=== PATIENT | female | born 1935 | race Caucasian/White ===

== ENCOUNTER 2021-05-19 10:56 | Inpatient (IN) | payer MEDICARE, OTHER ==
[~2021-05-19] VITALS: Ht 154.9 cm; Wt 58.1 kg
[2021-05-19 11:45] LABS: HEMOGLOBIN 11.9 gm/dl (12.3-15.3); RED BLOOD COUNT 3.61 M/UL (4.00-5.10); WHITE BLOOD COUNT 15.4 K/UL (4.5-11.0)
[2021-05-19] MEDS ORDERED: TYLENOL EXTRA500 MG PO ×2 (15:47)
[2021-05-19] MEDS ORDERED: MAALOX PLUS 3030 ML PO (15:48)
[2021-05-19] MEDS ORDERED: ALBUTEROL2.5 MG/3 M NEB (15:48)
[2021-05-19] MEDS ORDERED: ZYLOPRIM 300 M300 MG PO (15:48)
[2021-05-19] MEDS ORDERED: ARICEPT10 MG PO (15:48)
[2021-05-19] MEDS ORDERED: ELIQUIS2.5 MG PO (15:48)
[2021-05-19] MEDS ORDERED: LASIX20 MG PO (15:49)
[2021-05-19] MEDS ORDERED: GUAIFENESIN200 MG PO (15:49)
[2021-05-19] MEDS ORDERED: CLARITIN10 MG PO (15:50)
[2021-05-19] MEDS ORDERED: NAMENDA 5 MG TAB5 MG PO (15:50)
[2021-05-19] MEDS ORDERED: LACTULOSE10 GM/15 M PO (15:50)
[2021-05-19] MEDS ORDERED: LOPRESSOR 25 MG25 MG PO (15:50)
[2021-05-19] MEDS ORDERED: K-TAB ER10 MEQ PO (15:51)
[2021-05-19] MEDS ORDERED: ZOLOFT50 MG PO (15:51)
[2021-05-19] MEDS ORDERED: OMEPRAZOLE40 MG PO (15:51)
[2021-05-19] MEDS ORDERED: ZINC OXIDE60 GM TOP (15:52)
[2021-05-19] MEDS ORDERED: SODIUM CHLORIDE4 M1 NEB (15:52)
[2021-05-20 02:05] LABS: HEMOGLOBIN 11.3 gm/dl (12.3-15.3); RED BLOOD COUNT 3.41 M/UL (4.00-5.10)
[2021-05-20 02:30] LABS: BUN/CREATININE RATIO 39 (0-10)
[2021-05-21 06:44] LABS: HEMOGLOBIN 10.9 gm/dl (12.3-15.3); RED BLOOD COUNT 3.37 M/UL (4.00-5.10); WHITE BLOOD COUNT 11.5 K/UL (4.5-11.0)
[2021-05-21 07:09] LABS: BUN/CREATININE RATIO 38 (0-10)
[2021-05-21 17:23] LABS: BUN/CREATININE RATIO 39 (0-10)
[2021-05-22 06:40] LABS: HEMOGLOBIN 11.4 gm/dl (12.3-15.3); RED BLOOD COUNT 3.52 M/UL (4.00-5.10); WHITE BLOOD COUNT 13.5 K/UL (4.5-11.0)
[2021-05-22 06:57] LABS: BUN/CREATININE RATIO 34 (0-10)
[2021-05-23 06:34] LABS: HEMOGLOBIN 11.1 gm/dl (12.3-15.3); RED BLOOD COUNT 3.37 M/UL (4.00-5.10)
[2021-05-23 07:00] LABS: BUN/CREATININE RATIO 32 (0-10)
[2021-05-24 08:51] LABS: HEMOGLOBIN 11.8 gm/dl (12.3-15.3); RED BLOOD COUNT 3.6 M/UL (4.00-5.10); WHITE BLOOD COUNT 12.3 K/UL (4.5-11.0)
--- NOTE | 2021-05-24 18:18 | NUR ---
DR FUNES NOTIFIED AND ORDER TO REMOVE BOOTH, BOOTH CATHETER REMOVED WITH 400 URINE IN BOOTH BAG. PT TOLERATED WELL.
[2021-05-25 05:48] LABS: HEMOGLOBIN 11.5 gm/dl (12.3-15.3); RED BLOOD COUNT 3.5 M/UL (4.00-5.10); WHITE BLOOD COUNT 13.6 K/UL (4.5-11.0)
--- NOTE | 2021-05-26 04:05 | NUR ---
0118: NOTIFIED BY DAIRY BACTERIOLOGIST OF [place]. NO HR, NO RR NOTED. VERIFIED BY THIS RN AND CHAPARRITA BUSBY RN AT PT BESIDE. PT SON ALSO AT BEDSIDE. 0126: NOTIFIED HOUSEKEEPER HOME AND DR. FUNES. 0141: NOTIFIED RYDER. PT RULED OUT DUE TO AGE. DONOR RELATIONS MANAGER WILL OLIVER ID # [id number]. 0248: [facility] NOTIFIED 0320: [facility] ARRIVED 0335: PT TRANSPORTED VIA [facility]. DENTURES SENT WITH HOME.
== END 2021-05-26 01:18 | disposition expired | DRG 871 ==
LOC: ER1 10:56 → CDU 13:37 → MED SURG 4 13:37
PROVIDERS: Internal Medicine; Nurse Practitioner; Physician Assistant Medical; ADMIT Family Medicine
DX: A41.9 Sepsis, unspecified organism (principal); J18.9 Pneumonia, unspecified organism; J69.0 Pneumonitis due to inhalation of food and vomit; I21.A1 Myocardial infarction type 2; G93.41 Metabolic encephalopathy; N30.00 Acute cystitis without hematuria; I48.21 Permanent atrial fibrillation; Z20.822 Contact with and (suspected) exposure to COVID-19; Z66 Do not resuscitate; I25.10 Atherosclerotic heart disease of native coronary artery without angina pectoris; M10.9 Gout, unspecified; K21.9 Gastro-esophageal reflux disease without esophagitis; E86.0 Dehydration; F41.9 Anxiety disorder, unspecified; F32.A Depression, unspecified; H26.9 Unspecified cataract; I10 Essential (primary) hypertension; E78.5 Hyperlipidemia, unspecified; K22.2 Esophageal obstruction; F03.90 Unspecified dementia, unspecified severity, without behavioral disturbance, psychotic disturbance, mood disturbance, and anxiety; Z95.1 Presence of aortocoronary bypass graft; Z86.16 Personal history of COVID-19; Z95.818 Presence of other cardiac implants and grafts; Z90.710 Acquired absence of both cervix and uterus; Z88.5 Allergy status to narcotic agent; Z88.8 Allergy status to other drugs, medicaments and biological substances; Z88.6 Allergy status to analgesic agent; Z98.890 Other specified postprocedural states; Z74.01 Bed confinement status; Z79.01 Long term (current) use of anticoagulants; Z98.49 Cataract extraction status, unspecified eye; Z90.49 Acquired absence of other specified parts of digestive tract
CPT/HCPCS: 36415; 36600; 71045; 74230; 80048; 80053; 80202; 81001; 82140; 82550; 82553; 82803; 82962; 83036; 83605; 83735; 83874; 83880; 84295; 84439; 84443; 84484; 85025; 85027; 87040; 87086; 92526; 92610; 92611-GN; 93005; 94640; 94664; 94760; 99285; A6212; J1335; J1650; J1940; J3370; J7050; J7070; U0002